=== PATIENT | female | born 1940 | race Caucasian/White ===

== ENCOUNTER 2022-03-10 14:02 | Outpatient (CLI) | payer MEDICARE, BC, SELFPAY ==
[2022-03-12 17:36] LABS: Cancer Antigen 125 13 U/mL (<=38)
== END 2022-03-10 14:03 | disposition home or self-care (01) ==
LOC: NFLDREF 14:03
PROVIDERS: PCP Physician Assistant; Visit Provider Obstetrics & Gynecology
DX: N83.202 Unspecified ovarian cyst, left side (principal)
CPT/HCPCS: 86304

== ENCOUNTER 2022-08-19 13:00 | Outpatient (RCR) | payer MEDICARE, BC, SELFPAY ==
--- NOTE | 2022-08-11 16:23 | PT.OPEX ---
PT [facility] Start: 08/11/22 14:04 Freq: Status: Active Protocol: Document 08/11/22 14:04 YEN (Rec: 08/11/22 16:12 YEN [id number]) E-signed By Beatriz Thomason, PT Physical Therapy Outpatient Evaluation Insurance Information Recert Due Date 11/05/22 Insurance Name Medicare B,Blue [employer] Medical Diagnosis Right rotator cuff tear Treating Diagnosis Right shoulder pain, limited shoulder ROM, gross UE and periscapular weakness, poor postural positioning Referring MD Julian Subjective Subjective Denise reports to PT with primary complaint of right shoulder pain following fall about 1 month ago at home. She fell onto right shoulder. She was seen by Dr. Julian who advised she rest and don sling for 2-3 weeks with gradual weaning as tolerated d/t no apparent fracture. She notes pain was about 8/10 after the fall however has reduced down to about a 4/10 with light use of that arm. She has returned to her water aerobics classes which feel good on that shoulder however is not sure what else she can do at this time. She has difficulty reaching in all directions, donning/doffing shirts, sit<> supine transitions, performing fur buyer such as vacuuming. She ambulated with 4WW. She lives alone but has assistance from friends and family in the area. x-ray: right shoulder show no obvious fracture of the proximal humerus, glenoid, scapula or clavicle Pain Comments 4/10 Current Work Status Retired Precautions Therapy Limitations/Systems Review Not Limited Objective Other/Pertinent Objective Seated UE ROM (R/L): -ER0: 28/53 -Abd: 72/146 -FF: 68/148 -Functional IR: R iliac crest/ L3 -Functional ER: unable UE strength testing deferred d /t pain and significant ROM limitations however suspected RC tearing d/t limitations Supine<>sit transfers: use of L UE and LE to perform transfers at this time Light touch: intact throughout R UE Postural positioning: significant rounded shoulders and forward head Functional Test Performed & Score QuickDASH: 43.2% Assessment Assessment/Impression Patient is an 82 year old female presenting to physical therapy for evaluation and treatment of right shoulder pain following fall about 1 month ago. Patient presents with limited shoulder ROM in all directions, gross RC and periscapular weakness consistent with suspected RC tear. X-ray negative for fracture. These impairments are limiting the patients ability to reach overhead, don /doff clothes, perform fur buyer (vaccuming), sit<>supine transfers and bear weight through R UE with 4WW use. Patient appears motivated to participate in PT and presents with good prognosis to improve mobility, strength, proprioception and return to functional activities with skilled physical therapy intervention. Primary Functional Limitations reach overhead, don/doff clothes, perform fur buyer (vaccuming), sit<> supine transfers and bear weight through R UE with 4WW use Plan of Care Rehabilitation Potential Fair Rehabilitation Potential Comments Suspected rotator cuff tearing however not surgical candidate at this time d/t age and tissue quality. Will try to return to activities as able with skilled PT Physical Therapy Goals In 6 weeks (09/22/22) Patient demonstrates at least 100 degrees of shoulder flexion for ability to reach overhead into a shelf, dress, and bathe with <2/10 pain Patient will tolerate light weight bearing through R UE in order to perform supine<>Sit transfers with <2/10 pain and ambulate with 4WW Pt will demonstrate functional ER to occiput in order to wash hair In 10 weeks (10/20/22) Pt will exhibit 15-20 point improvement in QuickDASH Outcome measure to demonstrate functional improvement and progress towards goals Pt will report <2/10 pain with fur buyer such as vacuuming Treatment Plan/Direct Interventions Ice/Cold/Vasopneumatic,Joint Mobilization,Manual Therapy, Neuromuscular Re-ed,Self-Care/ Home Management,Therapeutic Activities,Therapeutic Exercises Frequency/Duration 1x/wk for 4 weeks with 4-6 more sessions prn based on progress Patient Will Be Discharged From Therapy Completion of LTG(s),Skills Plateau,Independent w/HEP, Independently Progressing Evaluation Billing Untimed Code Treatment Minutes 26 Complexity Low Certification Information Initial Certification Date 08/11/22 Ending Certification Date 11/05/22 Provider Signature Shows Agreement With POC & Medical Necessity Physician Signature & Date Requested Please Sign/Date Here Physician Comment/Change : Physician NPI Number #
== END 2022-11-27 08:07 | disposition home or self-care (01) ==
PROVIDERS: PCP Physician Assistant; Visit Provider Orthopaedic Surgery
DX: M75.101 Unspecified rotator cuff tear or rupture of right shoulder, not specified as traumatic (principal); Z51.89 Encounter for other specified aftercare
CPT/HCPCS: 97110; 97140; 97161

== ENCOUNTER 2024-02-07 08:34 | Emergency (ER) | payer MEDICARE, BC, SELFPAY ==
[2024-02-07 08:38] VITALS: BP 128/77; PULSE 86; RESP 20; TEMP 36.1; O2SAT 99; BMI 26.2
--- NOTE | 2024-02-07 08:55 | ED_ITS ---
HPI - General Adult General Chief complaint: Constipation Stated complaint: Constipation urinary problems Time Seen by Provider: 02/07/24 08:55 History of Present Illness HPI narrative: states long time since bm. thinks about 4 days since last bm. tried miralax without relief. tried fleets but thinks she did it wrong. has been having to urinate all the time that is worse for awhile. 83-year-old woman presenting to the emergency department with concern of constipation. It has been at least 4 days since she has had a bowel movement. Longer-term has not really struggled with constipation. She did however last week take a bowel aid and had some loose stool. In fact looser stools would be probably more of her long-term trend. Tried a dose of MiraLax somewhere in this course and tried a [employer] but not sure she did it right. Also been complaining of urinary frequency and some urgency but no dysuria. No fever. No notable abdominal pain. She is making flatus. Later I do discuss with her my findings on physical exam and other concerns and she notes that she had something or a cyst on her ovary for which was to have follow-up. Review of records shows suspected left ovarian cyst with normal CA 125 nearly 2 years ago. Anticipated follow-up ultrasound which does not sound like ultimately was done Related Data Home Medications ?Medication ?Instructions ?Recorded ?Confirmed albuterol sulfate 90 mcg/actuation inhalation 03/10/22 06/29/22 aerosol inhaler alendronate 70 mg tablet 70 mg PO .Q7days 03/10/22 06/29/22 alpha lipoic acid 200 mg tablet 400 mg PO 03/10/22 06/29/22 aspirin 81 mg chewable tablet 81 mg PO QDAY 03/10/22 02/07/24 duloxetine 60 mg capsule,delayed 60 mg PO DAILY 03/10/22 02/07/24 release erythromycin 5 mg/gram (0.5 %) eye ophthalmic (eye) 03/10/22 06/29/22 ointment fluorouracil 5 % topical cream applic topical 03/10/22 06/29/22 fluticasone 250 mcg-salmeterol 50 1 inhalation 03/10/22 06/29/22 mcg/dose blistr powdr for inhalation gabapentin 600 mg tablet 600 mg PO TID 03/10/22 02/07/24 hydrochlorothiazide 25 mg tablet 25 mg PO QAM 03/10/22 02/07/24 levothyroxine 75 mcg tablet 75 mcg PO QDAY 03/10/22 02/07/24 levothyroxine 88 mcg tablet 88 mcg PO DAILY 03/10/22 06/29/22 lisinopril 5 mg tablet 5 mg PO QDAY 03/10/22 02/07/24 multivitamin 1 tab PO QAM 03/10/22 02/07/24 oxygen-air delivery systems 03/10/22 06/29/22 simvastatin 20 mg tablet 20 mg PO DAILY 03/10/22 02/07/24 Previous Rx's ?Medication ?Instructions ?Recorded sennosides 8.6 mg-docusate sodium 1 - 2 tab-cap (1 - 2 x 8.6-50 mg) 02/07/24 50 mg tablet (Senna-S) PO BID PRN constipation #30 tabs sodium phosphates 19 gram-7 118 ml ID DAILY PRN constipation 02/07/24 gram/118 mL enema (Enema) #266 mL Allergies Allergy/AdvReac Type Severity Reaction Status Date / Time No Known Drug Allergies Allergy Verified 02/07/24 11:18 Review of Systems Status of ROS: Reports: 6 or more systems reviewed and unremarkable except as noted in History and below [facility] Medical History Hernia ?K46.9 - Unspecified abdominal hernia without obstruction or gangrene (ICD- 10) Vitamin D deficiency ?E55.9 - Vitamin D deficiency, unspecified (ICD-10) Anxiety ?F41.9 - Anxiety disorder, unspecified (ICD-10) Depression ?F32.A - Depression, unspecified (ICD-10) High cholesterol ?E78.00 - Pure hypercholesterolemia, unspecified (ICD-10) Hypertension ?I10 - Essential (primary) hypertension (ICD-10) Sleep apnea ?G47.30 - Sleep apnea, unspecified (ICD-10) Asthma ?J45.909 - Unspecified asthma, uncomplicated (ICD-10) Hypothyroid ?E03.9 - Hypothyroidism, unspecified (ICD-10) Skin cancer (~2005) ?C44.90 - Unspecified malignant neoplasm of skin, unspecified (ICD-10) Surgical History History of knee replacement ?Z96.659 - Presence of unspecified artificial knee joint (ICD-10) S/P hip replacement ?Z96.649 - Presence of unspecified artificial hip joint (ICD-10) H/O: hysterectomy ?Z90.710 - Acquired absence of both cervix and uterus (ICD-10) History of cholecystectomy ?Z90.49 - Acquired absence of other specified parts of digestive tract (ICD- 10) Hx of breast biopsy ?Z98.890 - Other specified postprocedural states (ICD-10) History of appendectomy ?Z90.49 - Acquired absence of other specified parts of digestive tract (ICD- 10) History of bladder surgery (~2008) ?Z98.890 - Other specified postprocedural states (ICD-10) Family History Daughter Breast cancer Paternal Grandmother Diabetes Mother High blood pressure Stroke Social History Smoking Status: Never smoker Do you use any of these nicotine containing products: None Second hand tobacco smoke exposure: No How often do you have a drink containing alcohol: never How often do you have six or more drinks on one occasion: Never AUDIT-C Alcohol total score: 0 Non-prescribed substance use: denies use service: No Exam Narrative: Exam Narrative: Very pleasant. NAD. Nearly tearful at various points. Skin is warm and dry. Lower extremities with trace pitting edema bilaterally. She is well-perfused. Moving all extremities without difficulty. Heart in regular rate and rhythm. Abdomen with present bowel sounds soft and not particularly tender. She does have a large and predominantly left-sided firm mass in the pelvis/low abdomen; infraumbilical. Const: Vital Signs, click to edit/add: Vital Signs - 24 hr 02/07/24 08:38 02/07/24 11:25 02/07/24 13:03 Temperature 97 F L Pulse Rate [Pulse Oximeter] 86 79 83 Respiratory Rate 20 18 18 Blood Pressure [Ri ght Upper Arm] 128/77 166/86 H 159/84 H Pulse Oximetry 99 97 100 Oxygen Delivery Me thod Room Air Room Air Room Air Documenting provider has reviewed patient's vital signs: yes Course Vital Signs Vital signs: Initial Vital Signs Temperature 97 F L 02/07/24 08:38 Temperature Source Temporal Artery Scan 02/07/24 08:38 Pulse Rate 86 02/07/24 08:38 Respiratory Rate 20 02/07/24 08:38 Blood Pressure 128/77 02/07/24 08:38 Blood Pressure Mean 94 02/07/24 08:38 Pulse Oximetry 99 02/07/24 08:38 Oxygen Delivery Method Room Air 02/07/24 08:38 Vital Signs Temperature 97 F L 02/07/24 08:38 Pulse Rate 86 02/07/24 08:38 Respiratory Rate 20 02/07/24 08:38 Blood Pressure 128/77 02/07/24 08:38 Pulse Oximetry 99 02/07/24 08:38 Oxygen Delivery Method Room Air 02/07/24 08:38 Temperature 97 F L 02/07/24 08:38 Pulse Rate 83 02/07/24 13:03 Respiratory Rate 18 02/07/24 13:03 Blood Pressure 159/84 H 02/07/24 13:03 Pulse Oximetry 100 02/07/24 13:03 Oxygen Delivery Method Room Air 02/07/24 13:03 Medical Decision Making MDM Narrative Medical decision making narrative: Initially with complaints of urinary frequency I wonder if there is some overflow incontinence. Certainly constipation or urinary retention could precipitate the other. Might also be a urinary tract infection. Does not appear to have symptoms of a small-bowel obstruction which she is relieved to hear. Bladder scan suggested minimal urine remaining. With that in mind, I do have concerns about this swelling/mass. I would anticipate IV contrasted CT of abdomen and pelvis to further characterize what is going on here. This would also assess for degree of constipation. I do review CT images and clearly evident is a large mass in the right low pelvis/abdomen I discussed these findings with underwriting technician here anticipating next steps in care. They do review images and this case. Recommending for sooner than later appointment with [facility]. Radiology over-read as below Pelvic mass, constipation Technique: Volumetric multidetector CT images of the abdomen and pelvis were obtained after the administration of intravenous contrast. 74 cc Isovue 370 low osmolar intravenous contrast Comparison: CT chest, abdomen and pelvis January 17, 2021 Findings: There is basilar atelectasis and parenchymal scar with mild pulmonary vascular congestion. There are subcentimeter hypodensities within the liver, too small to characterize. There is trace perihepatic fluid. The portal vein is patent. The gallbladder is unremarkable without evidence of radiopaque calculus. There is no significant common biliary ductal dilatation or abrupt cut off. The spleen is normal in enhancement and size. There is a small hiatal hernia with mild thickening of gastric antrum. The pancreas is normal in enhancement without significant atrophy. The adrenal glands are unremarkable. There is mild prominence of the left collecting system with a delayed urogram. Otherwise there is preserved corticomedullary differentiation. There is moderate stool seen throughout the colon with likely focal stricture of the mid sigmoid colon secondary to extrinsic neoplastic changes. The appendix is not well visualized and may be secondarily inflamed or infiltrated by adjacent neoplastic changes. There is demonstration of extensive omental caking predominantly along the right greater than left hemiabdomen with dominant hyperdense peritoneal metastasis along the right lower quadrant with secondary involvement of adjacent loops of large and small bowel. The aorta is nonaneurysmal. There is no significant atherosclerotic disease appreciated. There is demonstration a solid and cystic left ovarian mass measuring 14.0 by 10.2 centimeters in greatest dimension. There is no free fluid or free air. The anterior abdominal wall is intact without significant hernias. The lumbar vertebral body heights are similar to previous exam with moderate to severe degenerative disc height loss worst in the superior L1 and L2 levels. There is moderate facet arthrosis. Impression: 1. 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 There is likely extrinsic malignant stricture of the mid sigmoid colon as well as the distal left ureter with delayed left-sided nephrogram. Follow-up with dedicated pelvic MRI and/or Gyne Onc consultation. 2. No other definite acute intra-abdominal abnormalities. Discussed these findings with Ms. And since then and her family. She would really like an enema yet. Can certainly place this. Uncertain how well this will help and likely there is mass effect contributing to constipation. In spite of ureteral findings, does have good renal function. Will attempt to help her arrange next steps in care for follow-up appointment. Anticipate recommendations for bowel aids as well. Likely MiraLax plus or minus senna and enemas. See patient discharge plan for further discussion Medical Records Medical records reviewed: Yes I reviewed the patient's medical records Lab Data Lab results reviewed: Yes I reviewed the patient's lab results Labs: Lab Results 02/07/24 02/07/24 02/07/24 Range/Units 10:00 12:10 12:22 Hgb 12.5 (12.0-16.0) gm/dL Sodium 140 (135-149) mmol/L Potassium 4.0 (3.6-5.1) mmol/L Chloride 105 (96-114) mmol/L Carbon Dioxide 30 (20-32) mmol/L Anion Gap 5 L (7-15) mEq/L BUN 15 (7-30) mg/dL Creatinine 0.7 (0.5-1.5) mg/dL Estimated Creat Clear 34.02 Estimated GFR 85 ml/min Glucose 91 (60-115) mg/dL Calcium 9.0 (8.4-10.6) mg/dL Urine Color Yellow (Yellow) Urine Appearance Clear (Clear) Urine pH 8.0 (5.0-8.5) Ur Specific [place] 1.015 (1.000-1.030) Urine Protein Negative (Negative) Urine Glucose (UA) Negative (Negative) Urine Ketones Negative (Negative) Urine Blood Negative (Negative) Urine Nitrite Negative (Negative) Urine Bilirubin Negative (Negative) Urine Urobilinogen 1.0 (0.2-1.0) Ur Leukocyte Esterase Negative (Negative) Urine RBC 0-2 (0-2) Urine WBC 0-2 (0-5) Ur Squamous Epith Cells None (None-Few) Urine Bacteria None (None) Lab Acknowledgement Test Added Discharge Plan Discharge Clinical Impression: Palpable mass of pelvis, Constipation Patient Disposition: Home w/ Parent or Adult Additional Instructions: I would take that MiraLax diluted in it least 8 oz of liquid it least twice a day adjusting to stool consistency. Senna containing products are also helpful with moving the bowels. If you find yourself struggling with a ?plug then enemas can be helpful. I am afraid at this time you will need to wear pads of some sort. We are trying to get you an appointment with [facility]. If you haven't received a call from [facility] by 02/08, please contact them directly at [phone]. Prescriptions: New sennosides-docusate sodium [Senna-S] 8.6-50 mg tablet 1 - 2 tab-cap PO BID PRN (Reason: constipation) Qty: 30 0RF Enema 19-7 gram/118 mL enema 118 ml ID DAILY PRN (Reason: constipation) Qty: 266 1RF No Action alpha lipoic acid 200 mg tablet 400 mg PO duloxetine 60 mg capsule,delayed release(DR/EC) 60 mg PO DAILY hydrochlorothiazide 25 mg tablet 25 mg PO QAM lisinopril 5 mg tablet 5 mg PO QDAY albuterol sulfate 90 mcg/actuation HFA aerosol inhaler inhalation erythromycin 5 mg/gram (0.5 %) ointment ophthalmic (eye) simvastatin 20 mg tablet 20 mg PO DAILY gabapentin 600 mg tablet 600 mg PO TID levothyroxine 88 mcg tablet 88 mcg PO DAILY levothyroxine 75 mcg tablet 75 mcg PO QDAY fluorouracil 5 % cream topical alendronate 70 mg tablet 70 mg PO .Q7days fluticasone propion-salmeterol 250-50 mcg/dose blister with device 1 inhalation multivitamin Tablet 1 tab PO QAM (DME) oxygen-air delivery systems Device See Rx Instructions .Route Rx Instructions: As directed aspirin 81 mg tablet,chewable 81 mg PO QDAY Follow Up/Referrals: Nichelle Lacey PA [Primary Care Provider] - Stand Alone Forms: [facility] Info Instructions
--- NOTE | 2024-02-07 09:50 | CRLHL7_ITS ---
For Patients: As a result of the Century Cures Act, medical imaging exams and procedure reports are released immediately into your electronic medical record. You may view this report before your referring provider. If you have questions, please contact your health care provider. Indication: Pelvic mass, constipation Technique: Volumetric multidetector CT images of the abdomen and pelvis were obtained after the administration of intravenous contrast. 74 cc Isovue 370 low osmolar intravenous contrast Comparison: CT chest, abdomen and pelvis January 17, 2021 Findings: There is basilar atelectasis and parenchymal scar with mild pulmonary vascular congestion. There are subcentimeter hypodensities within the liver, too small to characterize. There is trace perihepatic fluid. The portal vein is patent. The gallbladder is unremarkable without evidence of radiopaque calculus. There is no significant common biliary ductal dilatation or abrupt cut off. The spleen is normal in enhancement and size. There is a small hiatal hernia with mild thickening of gastric antrum. The pancreas is normal in enhancement without significant atrophy. The adrenal glands are unremarkable. There is mild prominence of the left collecting system with a delayed urogram. Otherwise there is preserved corticomedullary differentiation. There is moderate stool seen throughout the colon with likely focal stricture of the mid sigmoid colon secondary to extrinsic neoplastic changes. The appendix is not well visualized and may be secondarily inflamed or infiltrated by adjacent neoplastic changes. There is demonstration of extensive omental caking predominantly along the right greater than left hemiabdomen with dominant hyperdense peritoneal metastasis along the right lower quadrant with secondary involvement of adjacent loops of large and small bowel. The aorta is nonaneurysmal. There is no significant atherosclerotic disease appreciated. There is demonstration a solid and cystic left ovarian mass measuring 14.0 by 10.2 centimeters in greatest dimension. There is no free fluid or free air. The anterior abdominal wall is intact without significant hernias. The lumbar vertebral body heights are similar to previous exam with moderate to severe degenerative disc height loss worst in the superior L1 and L2 levels. There is moderate facet arthrosis. Impression: 1. 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 There is likely extrinsic malignant stricture of the mid sigmoid colon as well as the distal left ureter with delayed left-sided nephrogram. Follow-up with dedicated pelvic MRI and/or Gyne Onc consultation. 2. No other definite acute intra-abdominal abnormalities. Please note that all CT scans at this facility use dose modulation, iterative reconstruction, and/or weight-based dosing when appropriate to reduce radiation dose to as low as reasonably achievable. Dictated by Anjel Alonso MD @ 02/07/2024 11:56:10 AM (Electronically Signed)
[2024-02-07 10:09] LABS: Hemoglobin* 12.5 gm/dL (12.0-16.0)
[2024-02-07 10:23] LABS: Chloride* 105 mmol/L (96-114); Sodium* 140 mmol/L (135-149)
[2024-02-07 10:26] LABS: Anion Gap 5 mEq/L (7-15); Blood Urea Nitrogen* 15 mg/dL (7-30); Carbon Dioxide* 30 mmol/L (20-32); Creatinine* 0.7 mg/dL (0.5-1.5); Est. Creatinine Clearance* 34.02; Estimated Glomerular Filt Rate 85 ml/min
[2024-02-07 10:27] LABS: Glucose* 91 mg/dL (60-115)
[2024-02-07 11:25] VITALS: BP 166/86; PULSE 79; RESP 18; O2SAT 97
[2024-02-07 12:20] LABS: Appearance Urine Clear (Clear); Bilirubin Urine Negative (Negative); Blood Urine Negative (Negative); Color Urine Yellow (Yellow); Glucose Urine Negative (Negative); Ketones Urine Negative (Negative); Leukocyte Esterase Urine Negative (Negative); Nitrite Urine Negative (Negative); Protein Urine Negative (Negative); Specific Gravity Urine 1.015 (1.000-1.030)
[2024-02-07 12:27] LABS: RBC Urine 0-2 (0-2); WBC Urine 0-2 (0-5)
[2024-02-07 13:03] VITALS: BP 159/84; PULSE 83; RESP 18; O2SAT 100
--- NOTE | 2024-02-07 14:24 | ED.NURSE ---
Pt given enema, tolerated well.
--- NOTE | 2024-02-07 14:52 | ED.NURSE ---
Enema unsuccessful for pt.
[2024-02-09 03:24] LABS: Cancer Antigen 125 84 U/mL (<=38); Cancer Antigen-GI (CA 19-9) 10 U/mL (<=35); Carcinoembryonic Antigen 4.6 ng/mL
== END 2024-02-07 14:48 | disposition home or self-care (01) ==
PROVIDERS: Emergency Provider Family Medicine; PCP Physician Assistant
DX: R19.00 Intra-abdominal and pelvic swelling, mass and lump, unspecified site (principal); K59.00 Constipation, unspecified
CPT/HCPCS: 36415; 51798; 74177; 80048; 81001; 82378; 85018; 86301; 86304; 99284; 99285; Q9967

== ENCOUNTER 2024-02-26 19:28 | Emergency (ER) | payer MEDICARE, BC, SELFPAY ==
[2024-02-26 19:40] VITALS: BP 128/71; PULSE 78; RESP 16; TEMP 36.9; O2SAT 98; BMI 26.6
--- NOTE | 2024-02-26 20:04 | ED.GENADULT ---
HPI - General Adult General Chief complaint: Laceration/Wound Stated complaint: laceration on R arm Time Seen by Provider: 02/26/24 20:04 History of Present Illness HPI narrative: R FA lac, bleeding, pressure wrapping applied. pt states around [id number] fell and hit arm on wheelchair. states is weak due to colonoscopy prep. 83 year old woman presenting to the emergency department following a laceration to her right arm. It sounds as though caught it on her wheelchair. No other injuries were sustained. Has been bleeding. She is currently doing colonoscopy prep with suspected diagnosis of cancer. This has contributed to some weakness. She is accompanied here by her daughter. Related Data Home Medications ?Medication ?Instructions ?Recorded ?Confirmed albuterol sulfate 90 mcg/actuation inhalation 03/10/22 06/29/22 aerosol inhaler alendronate 70 mg tablet 70 mg PO .Q7days 03/10/22 06/29/22 alpha lipoic acid 200 mg tablet 400 mg PO 03/10/22 06/29/22 aspirin 81 mg chewable tablet 81 mg PO QDAY 03/10/22 02/07/24 duloxetine 60 mg capsule,delayed 60 mg PO DAILY 03/10/22 02/07/24 release erythromycin 5 mg/gram (0.5 %) eye ophthalmic (eye) 03/10/22 06/29/22 ointment fluorouracil 5 % topical cream applic topical 03/10/22 06/29/22 fluticasone 250 mcg-salmeterol 50 1 inhalation 03/10/22 06/29/22 mcg/dose blistr powdr for inhalation gabapentin 600 mg tablet 600 mg PO TID 03/10/22 02/07/24 hydrochlorothiazide 25 mg tablet 25 mg PO QAM 03/10/22 02/07/24 levothyroxine 75 mcg tablet 75 mcg PO QDAY 03/10/22 02/07/24 levothyroxine 88 mcg tablet 88 mcg PO DAILY 03/10/22 06/29/22 lisinopril 5 mg tablet 5 mg PO QDAY 03/10/22 02/07/24 multivitamin 1 tab PO QAM 03/10/22 02/07/24 oxygen-air delivery systems 03/10/22 06/29/22 simvastatin 20 mg tablet 20 mg PO DAILY 03/10/22 02/07/24 Previous Rx's ?Medication ?Instructions ?Recorded sennosides 8.6 mg-docusate sodium 1 - 2 tab-cap (1 - 2 x 8.6-50 mg) 02/07/24 50 mg tablet (Senna-S) PO BID PRN constipation #30 tabs sodium phosphates 19 gram-7 118 ml HI DAILY PRN constipation 02/07/24 gram/118 mL enema (Enema) #266 mL Allergies Allergy/AdvReac Type Severity Reaction Status Date / Time No Known Drug Allergies Allergy Verified 02/07/24 11:18 Review of Systems Status of ROS: Reports: 6 or more systems reviewed and unremarkable except as noted in History and below [facility] Medical History Hernia ?K46.9 - Unspecified abdominal hernia without obstruction or gangrene (ICD-10) Vitamin D deficiency ?E55.9 - Vitamin D deficiency, unspecified (ICD-10) Anxiety ?F41.9 - Anxiety disorder, unspecified (ICD-10) Depression ?F32.A - Depression, unspecified (ICD-10) High cholesterol ?E78.00 - Pure hypercholesterolemia, unspecified (ICD-10) Hypertension ?I10 - Essential (primary) hypertension (ICD-10) Sleep apnea ?G47.30 - Sleep apnea, unspecified (ICD-10) Asthma ?J45.909 - Unspecified asthma, uncomplicated (ICD-10) Hypothyroid ?E03.9 - Hypothyroidism, unspecified (ICD-10) Skin cancer (~2005) ?C44.90 - Unspecified malignant neoplasm of skin, unspecified (ICD-10) Surgical History History of knee replacement ?Z96.659 - Presence of unspecified artificial knee joint (ICD-10) S/P hip replacement ?Z96.649 - Presence of unspecified artificial hip joint (ICD-10) H/O: hysterectomy ?Z90.710 - Acquired absence of both cervix and uterus (ICD-10) History of cholecystectomy ?Z90.49 - Acquired absence of other specified parts of digestive tract (ICD-10) Hx of breast biopsy ?Z98.890 - Other specified postprocedural states (ICD-10) History of appendectomy ?Z90.49 - Acquired absence of other specified parts of digestive tract (ICD-10) History of bladder surgery (~2008) ?Z98.890 - Other specified postprocedural states (ICD-10) Family History Daughter Breast cancer Paternal Grandmother Diabetes Mother High blood pressure Stroke Social History Smoking Status: Never smoker Do you use any of these nicotine containing products: None Second hand tobacco smoke exposure: No How often do you have a drink containing alcohol: never How often do you have six or more drinks on one occasion: Never AUDIT-C Alcohol total score: 0 Non-prescribed substance use: denies use service: No Exam Narrative: Exam Narrative: Very pleasant. Quickly responsive to questioning. Breathing easily. Head looks to be atraumatic. Moving all extremities without difficulty. Examination of the right forearm after removal of gauze wrap shows a volar side 2-3/4 inch full dermal laceration. The edges however more somewhat of a skin tear. Bleeds easily when manipulated. Subcutaneous structures are visible but intact. Sensation and perfusion intact distally. Const: Vital Signs, click to edit/add: Vital Signs - 24 hr 02/26/24 19:40 Temperature 98.4 F Pulse Rate [Pulse Oximeter] 78 Respiratory Rate 16 Blood Pressure [Ri ght Upper Arm] 128/71 Pulse Oximetry 98 Oxygen Delivery Me thod Room Air Documenting provider has reviewed patient's vital signs: yes Course Vital Signs Vital signs: Initial Vital Signs Temperature 98.4 F 02/26/24 19:40 Temperature Source Temporal Artery Scan 02/26/24 19:40 Pulse Rate 78 02/26/24 19:40 Respiratory Rate 16 02/26/24 19:40 Blood Pressure 128/71 02/26/24 19:40 Blood Pressure Mean 90 02/26/24 19:40 Blood Pressure Position Sitting 02/26/24 19:40 Pulse Oximetry 98 02/26/24 19:40 Oxygen Delivery Method Room Air 02/26/24 19:40 Vital Signs Temperature 98.4 F 02/26/24 19:40 Pulse Rate 78 02/26/24 19:40 Respiratory Rate 16 02/26/24 19:40 Blood Pressure 128/71 02/26/24 19:40 Pulse Oximetry 98 02/26/24 19:40 Oxygen Delivery Method Room Air 02/26/24 19:40 Temperature 98.4 F 02/26/24 19:40 Pulse Rate 78 02/26/24 19:40 Respiratory Rate 16 02/26/24 19:40 Blood Pressure 128/71 02/26/24 19:40 Pulse Oximetry 98 02/26/24 19:40 Oxygen Delivery Method Room Air 02/26/24 19:40 Medications Administered Medications: Discontinued Medications Generic Name Dose Route Start Last Admin Trade Name Latasha PRN Reason Stop Dose Admin Lidocaine/Epinephrine 20 ml 02/26/24 20:36 02/26/24 21:45 Lidocaine 1%-Epi 1:100,000 INFILTRATI 02/26/24 20:37 20 ml ONCE ONE Administration Medical Decision Making MDM Narrative Medical decision making narrative: Will clearly need repair. Would recommend suturing and some combination of Steri-Strips. Returned to inject with lidocaine with epinephrine. Achieved very good wound anesthesia and control of bleeding. Cleansed with Hibiclens solution and water and further irrigated with normal saline. Then placed running 5-0 Ethilon suture and Steri-Strips at both ends. Very good wound approximation achieved with control of bleeding. This is a clean wound and irrigated well. I do not think will need antibiotic coverage. Did place antibiotic ointment however and then gauze wrap. See patient discharge plan for further discussion Medical Records Medical records reviewed: Yes I reviewed the patient's medical records Discharge Plan Discharge Clinical Impression: Arm laceration, Skin tear Additional Instructions: Best wishes with the rest of your prep and your colonoscopy tomorrow. Continue to focus on hydration. Take care in transitions. I would keep that walker close. Remove the sutures in 10 days. Limit use of antibiotic ointment to just that center part if even that. Would not use antibiotic ointment beyond 3 days. Antibiotic ointment will likely encourage Steri-Strips to come off. The Steri-Strips hopefully will stay on for least 5 days. Trim the edges as they peel-away so that the whole thing does not catch and pull off. Could put some dots of glue at the end of the Steri-Strips if necessary. Keep covered with gauze wrap otherwise. Watch for spreading redness after 2 days, increasing tension/heat/pain. A real pleasure to see you. Prescriptions: No Action alpha lipoic acid 200 mg tablet 400 mg PO duloxetine 60 mg capsule,delayed release(DR/EC) 60 mg PO DAILY hydrochlorothiazide 25 mg tablet 25 mg PO QAM lisinopril 5 mg tablet 5 mg PO QDAY albuterol sulfate 90 mcg/actuation HFA aerosol inhaler inhalation erythromycin 5 mg/gram (0.5 %) ointment ophthalmic (eye) simvastatin 20 mg tablet 20 mg PO DAILY gabapentin 600 mg tablet 600 mg PO TID levothyroxine 88 mcg tablet 88 mcg PO DAILY levothyroxine 75 mcg tablet 75 mcg PO QDAY fluorouracil 5 % cream topical alendronate 70 mg tablet 70 mg PO .Q7days fluticasone propion-salmeterol 250-50 mcg/dose blister with device 1 inhalation multivitamin Tablet 1 tab PO QAM (DME) oxygen-air delivery systems Device See Rx Instructions .Route Rx Instructions: As directed aspirin 81 mg tablet,chewable 81 mg PO QDAY sennosides-docusate sodium [Senna-S] 8.6-50 mg tablet 1 - 2 tab-cap PO BID PRN (Reason: constipation) Qty: 30 0RF Enema 19-7 gram/118 mL enema 118 ml HI DAILY PRN (Reason: constipation) Qty: 266 1RF Follow Up/Referrals: Nichelle Lacey PA [Primary Care Provider] - [facility]: [facility]
[2024-02-26] MEDS: LIDOCAINE 1%-EPI 1:100,000 20 ML INFILTRATI (21:45)
== END 2024-02-26 21:46 | disposition home or self-care (01) ==
PROVIDERS: Emergency Provider Family Medicine; PCP Physician Assistant
DX: S51.811A Laceration without foreign body of right forearm, initial encounter (principal); W22.8XXA Striking against or struck by other objects, initial encounter
CPT/HCPCS: 12001; 99283; 99284

== ENCOUNTER 2024-03-09 10:27 | Outpatient (RCR) | payer MEDICARE, BC, SELFPAY ==
[2024-03-09 11:24] LABS: Basophils Absolute Auto 0.02 K/uL (0.00-0.30); Basophils Percent Auto 0.3 % (0.0-3.0); Eosinophils Absolute Auto 0.06 K/uL (0.00-0.50); Eosinophils Percent Auto 0.9 % (0.0-7.0); Hematocrit 37.6 % (33.0-51.0); Hemoglobin* 12.3 gm/dL (12.0-16.0); Immature Granulocytes Abs Auto 0.01 K/uL (0.00-0.30); Immature Granulocytes Pct Auto 0.1 %; Mean Corpuscular HGB Conc 33 gm/dL (32-36); Mean Corpuscular Hemoglobin 30 pg (26-34); Mean Corpuscular Volume 92 fL (80-100); Monocytes Percent Auto 8.3 % (0.0-11.0); Neutrophils Percent Auto 77.4 % (42.0-72.0); Platelet Count* 258 K/uL (140-440); RDW Coefficient of Variation % 14.6 % (11.5-15.5); Red Blood Count 4.07 m/uL (4.00-5.20); White Blood Count* 7.01 K/uL (4.50-11.00)
[2024-03-09 11:35] LABS: Slide Review Reflex No
[2024-03-09 11:41] LABS: Albumin* 3.7 g/dL (3.3-5.0); Chloride* 105 mmol/L (96-114); Sodium* 137 mmol/L (135-149)
[2024-03-09 11:42] LABS: Potassium* 3.8 mmol/L (3.6-5.1)
[2024-03-09 11:44] LABS: Alanine Aminotransferase* 28 U/L (4-35); Alkaline Phosphatase* 75 U/L (40-150); Anion Gap 7 mEq/L (7-15); Aspartate Amino Transferase* 31 U/L (12-35); Bilirubin Total* 0.7 mg/dL (0.1-1.5); Blood Urea Nitrogen* 18 mg/dL (7-30); Carbon Dioxide* 25 mmol/L (20-32); Creatinine* 0.8 mg/dL (0.5-1.5); Est. Creatinine Clearance* 32.53; Estimated Glomerular Filt Rate 72 ml/min; Glucose* 95 mg/dL (60-115); Total Protein* 5.9 g/dL (6.0-8.3)
[2024-03-09 11:45] LABS: Calcium* 8.9 mg/dL (8.4-10.6)
[2024-03-11 23:57] LABS: Cancer Antigen 125 115 U/mL (<=38)
== END 2024-09-05 23:59 | disposition home or self-care (01) ==
LOC: CCIC 10:27
PROVIDERS: PCP Family Medicine; Visit Provider Internal Medicine Hematology & Oncology
DX: C56.2 Malignant neoplasm of left ovary (principal); Z86.718 Personal history of other venous thrombosis and embolism; N13.5 Crossing vessel and stricture of ureter without hydronephrosis; M79.89 Other specified soft tissue disorders; K56.609 Unspecified intestinal obstruction, unspecified as to partial versus complete obstruction
CPT/HCPCS: 36415; 80053; 85025; 86304; 99203; 99205

== ENCOUNTER 2024-03-09 11:48 | Outpatient (CLI) | payer MEDICARE, BC, SELFPAY ==
--- NOTE | 2024-03-09 12:00 | CRLHL7_ITS ---
For Patients: As a result of the Century Cures Act, medical imaging exams and procedure reports are released immediately into your electronic medical record. You may view this report before your referring provider. If you have questions, please contact your health care provider. INDICATION: Leg pain and swelling COMPARISON: None. TECHNIQUE: Kaplan-scale, color, and duplex Doppler imaging of the the left lower extremity veins. Compression and augmentation attempted where anatomically and clinically feasible. FINDINGS: Laterality: Left Examined veins: Common femoral, femoral, popliteal, peroneal, posterior tibial Proximal greater saphenous The examined veins are patent with normal grayscale appearance and normal compressibility where anatomically feasible. Normal color Doppler flow. Normal venous waveforms on duplex Doppler ultrasound with normal augmentation. The right common femoral vein is sampled for comparison and is normal. IMPRESSION: No deep vein thrombosis in the left lower extremity. Dictated by Matilde Martinez MD @ 03/09/2024 12:48:52 PM (Electronically Signed)
--- NOTE | 2024-03-09 13:00 | CRLHL7_ITS ---
For Patients: As a result of the Century Cures Act, medical imaging exams and procedure reports are released immediately into your electronic medical record. You may view this report before your referring provider. If you have questions, please contact your health care provider. INDICATION: Malignant neoplasm of left ovary. COMPARISON: 02/07/2024 CT abdomen pelvis, 01/17/2021 CT chest abdomen pelvis, DVT ultrasound 03/09/2024. TECHNIQUE: CT of the abdomen and pelvis with intravenous contrast. Multiplanar axial, coronal, and sagittal reformats were reconstructed. Contrast: 84 mL Isovue 370. FINDINGS: Lung bases: Normal. Liver: There are few subcentimeter hypodense liver lesions that similar to 2020. Gallbladder and bile ducts: Gallbladder is distended. No immediately pericholecystic fluid. No bile duct dilation. Pancreas: Normal. Spleen: Upper limits of normal spleen size and similar to prior. Adrenal glands: Generally thickened adrenal glands without a discrete nodule. Kidneys: Normal right kidney. Delayed enhancement of the left kidney related to urinary tract obstruction. There is pelvicaliectasis and ureterectasis down into the pelvis where the ureter is compressed by the ovarian mass. No right-sided urinary tract dilatation. No urinary tract calculi. Left-sided obstruction appears worse than before. Urinary bladder: Barely filled. Pelvis: Large multilocular septated cystic left ovarian mass. There solid nodular components along the anterior margin. The mass measures 10.6 x 10.5 x 17.4 cm. The mass previously measured 9.6 x 9.6 x 16.0 centimeters when measured in a similar fashion. Associated mass effect in the pelvis. Vessels: Atherosclerotic vascular calcifications. No aortic aneurysm. Expansile filling defect in the left common femoral vein extending into the left iliac arteries suspicious for DVT related to mass effect. This is worse than on the previous exam. Bowel: Small bowel obstruction due to omental caking/peritoneal implants. The dilated bowel measures up to about 3 centimeters in diameter. There is a very focally thick-walled segment of short bowel in the right mid abdomen with wall thickness up to 7 millimeters. Transition points are fairly distant from 1 another and there is a relatively low suspicion for closed loop morphology. There is some adjacent mesenteric inflammation but no interloop ascites. Peritoneum: Trace ascites. Extensive peritoneal nodularity and enhancement and solid soft tissue omental mass. Abdominal wall: No hernia. Bones: Vertebral compression fractures are similar to the prior exam. No focally destructive bony lesion seen. IMPRESSION: 1. Small-bowel obstruction due to omental caking and tethering of the small bowel in the right lower quadrant. There does appear to be some degree of vascular compromise as there is a short isolated segment with a thick wall. This may indicate venous hypertension or early ischemia in this segment. 2. The pelvic mass is enlarging, by about 1-2 centimeters in every direction. 3. Worsening left urinary tract dilatation. Delayed left renal enhancement consistent with obstruction. 4. Worsening / new left external iliac vein and likely proximal common femoral vein deep vein thrombosis. Please note that all CT scans at this facility use dose modulation, iterative reconstruction, and/or weight-based dosing when appropriate to reduce radiation dose to as low as reasonably achievable. Dictated by Matilde Martinez MD @ 03/09/2024 1:06:08 PM (Electronically Signed)
== END 2024-03-09 11:49 | disposition home or self-care (01) ==
LOC: US 11:48
PROVIDERS: PCP Family Medicine; Visit Provider Internal Medicine Hematology & Oncology
DX: C56.2 Malignant neoplasm of left ovary (principal); I82.412 Acute embolism and thrombosis of left femoral vein; R19.00 Intra-abdominal and pelvic swelling, mass and lump, unspecified site; M79.89 Other specified soft tissue disorders
CPT/HCPCS: 36415; 74177; 80053; 85025; 86304; 93971; 99203; Q9967

== ENCOUNTER 2024-03-30 19:21 | Outpatient (CLI) | payer MEDICARE, BC, SELFPAY | END 2024-03-30 19:22 | disposition home or self-care (01) | LOC: AMB 03-31 03:20 | PROVIDERS: PCP Family Medicine; Visit Provider Emergency Medicine | DX: R10.9 Unspecified abdominal pain (principal); R33.9 Retention of urine, unspecified; Z46.6 Encounter for fitting and adjustment of urinary device | CPT/HCPCS: A0425; A0429 ==